=== PATIENT | female | born 1950 | race Caucasian/White ===

== ENCOUNTER 2016-07-06 06:51 | Outpatient (CLI) | payer MEDICAID | END 2016-07-06 06:52 | disposition home or self-care (01) | DX: R05 Cough (principal) ==

== ENCOUNTER 2016-07-18 14:50 | Outpatient (CLI) | payer MEDICAID | END 2016-07-18 14:51 | disposition home or self-care (01) | DX: Z13.9 Encounter for screening, unspecified (principal); B19.20 Unspecified viral hepatitis C without hepatic coma ==

== ENCOUNTER 2016-07-25 13:45 | Outpatient (CLI) | payer MEDICAID | END 2016-07-25 14:15 | disposition home or self-care (01) | DX: R07.9 Chest pain, unspecified (principal) ==

== ENCOUNTER 2016-07-31 12:14 | Outpatient (CLI) | payer MEDICAID | END 2016-07-31 12:15 | disposition home or self-care (01) | DX: N64.59 Other signs and symptoms in breast (principal) ==

== ENCOUNTER 2016-08-09 11:20 | Outpatient (CLI) | payer MEDICAID | END 2016-08-09 11:21 | disposition home or self-care (01) | DX: R00.2 Palpitations (principal) ==

== ENCOUNTER 2016-11-09 08:00 | Outpatient (CLI) | payer MEDICAID ==
[2016-11-09 19:15] LABS: BASOPHILS % (AUTO) 0.9 %; EOSINOPHILS # (AUTO) 0.1 10^3/uL (0.0-0.7); EOSINOPHILS % (AUTO) 3.6 %; HCT - HEMATOCRIT 40.5 % (37.0-47.0); HGB - HEMOGLOBIN 13.6 g/dL (12.0-16.0); LYMPHOCYTES # (AUTO) 1.2 10^3/uL (1.5-3.5); LYMPHOCYTES % (AUTO) 32.1 %; MEAN CORPUSCULAR HEMOGLOBIN 30.6 pg (27.0-31.0); MEAN CORPUSCULAR HGB CONC 33.5 g/dL (32.0-36.0); MEAN CORPUSCULAR VOLUME 91.3 fL (81.0-99.0); MONOCYTES # (AUTO) 0.5 10^3/uL (0.0-1.0); MONOCYTES % (AUTO) 13.7 %; NEUTROPHILS # (AUTO) 1.9 10^3/uL (1.5-6.6); NEUTROPHILS % (AUTO) 49.7 %; NUCLEATED RED BLOOD CELLS AUTO 0.1 /100WBC; RED BLOOD COUNT 4.43 10^6/uL (4.20-5.40); RED CELL DISTRIBUTION WIDTH 13.2 % (12.0-15.0); UNCORRECTED WHITE BLOOD COUNT 3.8 x10^3/uL; WHITE BLOOD COUNT 3.8 x10^3/uL (4.8-10.8)
[2016-11-09 19:36] LABS: ALBUMIN/GLOBULIN RATIO 1.6 (1.0-2.2); BILIRUBIN,TOTAL 0.5 mg/dL (0.2-1.0); CALCIUM 9.5 mg/dL (8.5-10.3); CREATININE 0.7 mg/dL (0.4-1.0); POTASSIUM 3.9 mmol/L (3.5-5.0); TOTAL PROTEIN 7.4 g/dL (6.7-8.2)
== END 2016-11-09 08:01 | disposition home or self-care (01) ==
LOC: LAB.N 08:00
PROVIDERS: ATTEND Nurse Practitioner Gerontology
DX: R25.2 Cramp and spasm (principal); D72.818 Other decreased white blood cell count
CPT/HCPCS: 36415; 80053; 83735; 85025; 87522

== ENCOUNTER 2017-05-20 14:08 | Emergency (ER) | payer MEDICAID ==
[2017-05-20 14:16] VITALS: BP 123/73
--- NOTE | 2017-05-20 16:29 | ED Physician Documentation ---
PD HPI HEENT - Stated complaint Stated Complaint: TOOTH PX - Chief complaint Chief Complaint: Heent - History obtained from History obtained from: Patient, Friend - History of Present Illness Timing - onset: How many weeks ago (2) Timing - duration: Weeks (2) Timing - details: Gradual onset Pain level max: 8 Pain level now: 8 Location: Tooth (Left upper tooth) Improves: Nothing Worsens: Other (eating) Associated symptoms: No: Fever, Congestion, Rhinorrhea, Trismus, Unable to swallow, Swollen nodes, Facial swelling, Headache Recently seen: Not recently seen - Additional information Additional information: Patient is being treated with epclusa for hep C. 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 : None HEENT: None Psych: None Musculoskeletal: Osteoarthritis Derm: None Other Past Medical History: Is undergoing pharmacologic treatment of Hep C - Past Surgical History Past Surgical History: No - Present Medications Home Medications: Ambulatory Orders Medication Instructions Recorded Confirmed Cephalexin [Keflex] 500 mg PO Q6H #40 capsule 05/20/17 oxyCODONE [Roxicodone] 5 mg PO Q6H PRN #10 tablet 05/20/17 - Allergies Allergies/Adverse Reactions: Allergies Allergy/AdvReac Type Severity Reaction Status Date / Time clindamycin AdvReac Nausea Verified 05/20/17 16:31 - Social History Does the pt smoke?: No Smoking Status: Never smoker Does the pt drink ETOH?: Yes Does the pt have substance abuse?: No - Immunizations Immunizations are current?: Yes - POLST Patient has POLST: No PD ED PE NORMAL - Vitals Vital signs reviewed: Yes - General General: Alert and oriented X 3, No acute distress - HEENT HEENT: Moist mucous membranes - Neck Neck: Supple, no meningeal sign - Cardiac Cardiac: RRR, Strong equal pulses - Respiratory Respiratory: No respiratory distress, Clear bilaterally PD ED PE EXPANDED - HEENT HEENT Visual: 1 - tenderness (dental decay, tenderness. no gingival swelling or abscess.) Results - Vitals Vitals: Vital Signs - 24 hr 05/20/17 14:13 Temperature 36.3 C L Heart Rate 72 Respiratory 18 Rate Blood Pressure 123/73 O2 Saturation 98 Oxygen O2 Source Room air PD MEDICAL DECISION MAKING - ED course Complexity details: considered differential, d/w patient ED course: Patient is a 67-year-old female who presents to the emergency department with dental caries, will place on antibiotics for this. Also prescribe a small amount of pain medication for her. Will avoid any Tylenol-containing medications given her hepatitis C. Patient is well-appearing, nontoxic. Afebrile. No facial swelling or cellulitis. No drainable abscess. Patient counseled regarding signs and symptoms for which I believe and urgent re- evaluation would be necessary. Patient with good understanding of and agreement to plan and is comfortable going home at this time This document was made in part using voice recognition software. While efforts are made to proofread this document, sound alike and grammatical errors may occur. Departure - Departure Disposition: 01 Home, Self Care Clinical Impression: Dental caries Condition: Good Instructions: ED Cavity Dental Follow-Up: Leah Fernandez ARNP [Primary Care Provider] - Within 1 week Prescriptions: Cephalexin [Keflex] 500 mg PO Q6H #40 capsule oxyCODONE [Roxicodone] 5 mg PO Q6H PRN #10 tablet PRN Reason: dental pain Comments: Return if you worsen. It is very important that you follow-up with your doctor for further care as well as a dentist to evaluate your tooth. Do not drink alcohol or drive while on narcotic pain medicine. Note that many narcotic pain relievers also contain tylenol/acetaminophen. Please ensure that your total dose of acetaminophen from all sources does not exceed 3 grams (3000mg) per day. You may constipated on this medication, take a stool softener such as "Colace" twice a day while you are on it. Also recommend a ytos-kou-ckmdsli laxative such as senna or MiraLAX any day that you do not have a bowel movement. If you received narcotic pain medication in the emergency department, do not drive or operate machinery for the next 24 hours. Discharge Date/Time: 05/20/17 16:40
== END 2017-05-20 16:40 | disposition home or self-care (01) ==
LOC: ED 14:08
DX: K02.9 Dental caries, unspecified (principal); B19.20 Unspecified viral hepatitis C without hepatic coma; M19.90 Unspecified osteoarthritis, unspecified site
CPT/HCPCS: 99283

== ENCOUNTER 2017-09-21 08:00 | Outpatient (CLI) | payer MEDICAID, MEDICARE ==
[2017-09-21 19:19] LABS: CALCIUM 9.4 mg/dL (8.5-10.3); CREATININE 0.7 mg/dL (0.4-1.0)
== END 2017-09-21 08:01 | disposition home or self-care (01) ==
LOC: LAB.N 08:00
PROVIDERS: ATTEND Nurse Practitioner Gerontology
DX: E87.1 Hypo-osmolality and hyponatremia (principal)
CPT/HCPCS: 36415; 80048

== ENCOUNTER 2018-05-09 13:10 | Outpatient (CLI) | payer MEDICARE, OTHER ==
--- NOTE | 2018-05-17 09:55 | MRI Report ---
Reason: ABN BREAST FINDINS, BREAST IMPLANT STATUS Procedure Date: 05/09/2018 Accession Number: [id number] / [id number] Procedure: MRI - Breast W/O Con Bilat CPT Code: 82147 FULL RESULT: EXAM: Breast W/O Con Bilat DATE: 05/09/2018 2:16 PM CLINICAL HISTORY: Clinical findings suspicious for breast implant rupture. COMPARISON: None. TECHNIQUE: A dedicated breast coil was used to obtain alberene stone setter sequences followed by high-resolution axial and limited [id number] sagittal views with dedicated acquisition focused on the left and separately right breast. CONTRAST USED: None. FINDINGS: Chest: Limited nondedicated visualization of heart, lungs and visceral upper abdominal organs is unremarkable. Right breast: There is a contained rupture of the right saline breast implant with the implant shell retracted and suspended within the fluid; positive linguini sign. Left breast: Within the well-contained fluid volume along the posterior medial margin of the left saline implant is a retracted portion of the shell as seen on image 29 series 401 and image 13 series 301. This likely represents early disruption of implant shell integrity. IMPRESSION: Right breast implant rupture. Question early contained rupture of the posterior left breast implant. Integrity of the saline volume is maintained on the left.
== END 2018-05-09 13:11 | disposition home or self-care (01) ==
LOC: DI 13:10
PROVIDERS: ATTEND Nurse Practitioner Gerontology
DX: T85.41XA Breakdown (mechanical) of breast prosthesis and implant, initial encounter (principal); N64.4 Mastodynia; Z98.82 Breast implant status
CPT/HCPCS: 77047

== ENCOUNTER 2019-01-07 08:00 | Outpatient (CLI) | payer MEDICARE, OTHER ==
[2019-01-07 19:14] LABS: BASOPHILS % (AUTO) 0.7 %; EOSINOPHILS # (AUTO) 0.1 10^3/uL (0.0-0.7); EOSINOPHILS % (AUTO) 1.7 %; HGB - HEMOGLOBIN 12.5 g/dL (12.0-16.0); LYMPHOCYTES # (AUTO) 1.2 10^3/uL (1.5-3.5); LYMPHOCYTES % (AUTO) 28.2 %; MEAN CORPUSCULAR HEMOGLOBIN 30.5 pg (27.0-31.0); MEAN CORPUSCULAR HGB CONC 32.8 g/dL (32.0-36.0); MEAN CORPUSCULAR VOLUME 92.9 fL (81.0-99.0); MEAN PLATELET VOLUME 9.7 fL (7.9-10.8); MONOCYTES # (AUTO) 0.5 10^3/uL (0.0-1.0); MONOCYTES % (AUTO) 12.1 %; NEUTROPHILS # (AUTO) 2.4 10^3/uL (1.5-6.6); NEUTROPHILS % (AUTO) 57.1 %; PLT - PLATELET COUNT 205 10^3/uL (130-450); RED CELL DISTRIBUTION WIDTH 12.9 % (12.0-15.0); WHITE BLOOD COUNT 4.2 x10^3/uL (4.8-10.8)
[2019-01-07 19:26] LABS: ALBUMIN 4.5 g/dL (3.2-5.5); ALBUMIN/GLOBULIN RATIO 1.4 (1.0-2.2); ALKALINE PHOSPHATASE 53 IU/L (42-121); ALT ALANINE AMINOTRANSFERASE 17 IU/L (10-60); AST ASPARTATE AMINOTRANSFERASE 21 IU/L (10-42); BILIRUBIN,TOTAL 0.7 mg/dL (0.2-1.0); BUN - BLOOD UREA NITROGEN 13 mg/dL (6-20); CALCIUM 9.8 mg/dL (8.5-10.3); CARBON DIOXIDE - CO2 29 mmol/L (21-32); CHLORIDE 103 mmol/L (101-111); CHOL/HDL RATIO 2.8 (<4.4); CHOLESTEROL 281 mg/dL; CREATININE 0.6 mg/dL (0.4-1.0); GFR - MDRD 100 (>89); GLUCOSE 100 mg/dL (70-100); HDL CHOLESTEROL 99 mg/dL; LDL CHOLESTEROL,CALCULATED 165 mg/dL; LDL/HDL RATIO 1.7 (<4.4); SODIUM 138 mmol/L (135-145); TOTAL PROTEIN 7.7 g/dL (6.7-8.2); VLDL CHOLESTEROL 17 mg/dL
[2019-01-17 07:51] LABS: HCV RNA QUANT RT PCR <15 NOT DETECTED
[2019-01-17 07:53] LABS: HCV RNA QNT <1.18 NOT DETECTED
== END 2019-01-07 23:59 | disposition home or self-care (01) ==
LOC: LAB.N 08:00
PROVIDERS: ATTEND Nurse Practitioner Gerontology
DX: Z13.9 Encounter for screening, unspecified (principal); B19.20 Unspecified viral hepatitis C without hepatic coma; R53.83 Other fatigue
CPT/HCPCS: 36415; 80053; 80061; 83721; 84443; 85025; 87522

== ENCOUNTER 2019-01-15 15:38 | Outpatient (CLI) | payer MEDICARE, OTHER ==
--- NOTE | 2019-01-18 08:08 | Ultrasound Report ---
Reason: FATIGUE, ENLARGED THYROID Procedure Date: 01/15/2019 Accession Number: [id number] / [id number] Procedure: US - Head or Neck Soft Tissue CPT Code: FULL RESULT: EXAM: THYROID ULTRASOUND EXAM DATE: 01/15/2019 04:47 PM. CLINICAL HISTORY: Fatigue, enlarged thyroid. COMPARISON: None. TECHNIQUE: Real time sonographic imaging of the thyroid was performed by the assistant teacher primary. Multiple customer engagement representative static images were saved for review. FINDINGS: THYROID GLAND: Right Lobe: 3.9 x 1.1 x 1.3 cm, volume 2.9 cc. Mildly heterogeneous parenchyma. Right Lobe Nodules: 0.3 x 0.2 x 0.2 cm mid right thyroid non-vascular solid nodule. No microcalcifications. Left Lobe: 3.9 x 0.8 x 1.1 cm, volume 1.8 cc. Mildly heterogeneous parenchyma. Left Lobe Nodules: 0.5 x 0.3 x 0.3 cm echogenic medial mid left thyroid solid nodule with punctate echogenic nonshadowing foci. Minimal peripheral vascularity. Isthmus: 0.2 cm AP. Isthmic Nodules: None. LYMPH NODES: No adenopathy demonstrated in the central or lateral compartment. OTHER: None. IMPRESSION: 1. Heterogeneous thyroid parenchyma. 2. 0.5 cm solid minimally vascular mid left thyroid nodule with calcifications. 0.3 cm solid avascular mid right thyroid nodule. No microcalcifications. Recommend follow-up ultrasound in 12-24 months to document stability. 3. No pathologic lymphadenopathy. Management recommendations are based on 2015 [place] [employer] Management Guidelines for Adult Patients with Thyroid Nodules and Differentiated Thyroid Cancer. RADIA
== END 2019-01-15 15:39 | disposition home or self-care (01) ==
LOC: DI 15:38
PROVIDERS: ATTEND Nurse Practitioner Gerontology
DX: E04.2 Nontoxic multinodular goiter (principal); R53.83 Other fatigue
CPT/HCPCS: 76536

== ENCOUNTER 2019-02-23 16:24 | Emergency (ER) | payer MEDICARE, OTHER ==
[2019-02-23] MEDS ORDERED: oxyCODONE 5 MG TABLET PO STA (16:46)
--- NOTE | 2019-02-23 16:48 | ED Physician Documentation ---
PD HPI FOCAL NEURO - Stated complaint Stated Complaint: DIFFICULTY SWALLOWING, PX BACK OF HEAD - Chief complaint Chief Complaint: Neuro - History obtained from History obtained from: Patient - History of Present Illness Timing - onset: Yesterday (68-year-old woman who was starting yesterday morning right anterior mid neck pain when swallowing which triggered a occipital headache. Yesterday it was mostly with swallowing but today the swallowing is better and now has the headache which is right occipital and at the vertex. Its spasmodic almost, last for seconds at a time and then goes away. There is no associated visual deficit. No fevers. 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 : None HEENT: None Psych: None Musculoskeletal: Osteoarthritis Derm: None - Past Surgical History Past Surgical History: No - Present Medications Home Medications: Ambulatory Orders Medication Instructions Recorded Confirmed Carbamazepine 200 mg PO BID #30 tablet 02/23/19 - Allergies Allergies/Adverse Reactions: Allergies Allergy/AdvReac Type Severity Reaction Status Date / Time meperidine [From Demerol] Allergy Unknown Verified 02/23/19 16:33 clindamycin AdvReac Nausea Verified 02/23/19 16:33 - Social History Does the pt smoke?: No Smoking Status: Never smoker Does the pt drink ETOH?: Yes Does the pt have substance abuse?: No - Immunizations Immunizations are current?: Yes - POLST Patient has POLST: No PD ED PE NORMAL - Vitals Vital signs reviewed: Yes - General General: Alert and oriented X 3, Other (Generally no distress but occasionally kind of spasms up and looks like she is in pain for a second or 2) - HEENT HEENT: PERRL, EOMI, Other (No temporal artery tenderness. Cranial nerves are equal and symmetric except I did not check cranial nerve I.) - Neck Neck: Supple, no meningeal sign, No bony TTP - Cardiac Cardiac: RRR, No murmur - Abdomen Abdomen: Soft, Non tender - Neuro Neuro: Alert and oriented X 3, theater company producer 2-12 intact, No motor deficit, No sensory deficit, Normal speech - Psych Psych: Normal mood, Normal affect Results - Vitals Vitals: Vital Signs - 24 hr 02/23/19 16:29 Temperature 36.8 C Heart Rate 87 Respiratory 20 Rate Blood Pressure 143/69 H O2 Saturation 100 Oxygen O2 Source Room air - Labs Labs: Laboratory Tests 02/23/19 02/23/19 02/23/19 16:56 16:56 16:56 WBC 5.0 RBC 4.20 Hgb 12.8 Hct 38.6 MCV 91.9 MCH 30.5 MCHC 33.2 RDW 12.8 Plt Count 205 MPV 8.9 Neut # (Auto) 2.9 Lymph # (Auto) 1.5 [place] # (Auto) 0.5 Eos # (Auto) 0.1 Baso # (Auto) 0.0 Absolute Nucleated RBC 0.00 Nucleated RBC % 0.0 ESR 5 Sodium 137 Potassium 4.0 Chloride 99 L Carbon Dioxide 25 Anion Gap 13.0 BUN 17 Creatinine 0.7 Estimated GFR (MDRD) 84 L Glucose 121 H Calcium 9.8 Total Bilirubin 0.7 AST 22 ALT 16 Alkaline Phosphatase 51 C-Reactive Protein < 1.0 Total Protein 7.5 Albumin 4.2 Globulin 3.3 Albumin/Globulin Ratio 1.3 Lipase 39 - Rads (name of study) CT Head Radiology: EMP read contemporaneously (normal) Procedures - General procedure General procedure: After discussion and verbal informed consent a right sided greater occipital nerve block was done after alcohol prep with 3 mL of 0.5% Marcaine with epinephrine and 1 mL of 40 mg of triamcinolone. PD MEDICAL DECISION MAKING - ED course ED course: 68-year-old woman presents with a history very consistent with occipital neuralgia, differential diagnosis would include vascular issue, intracranial bleed etc., but the spasmodic nature of it strongly suggest occipital neuralgia. She actually did have some relief with the occipital nerve block but the pain seemed to move more anteriorly at that point suggesting multiple areas of the cranial neuralgia. Her diagnostics were negative. She had some side effects with oxycodone here causing some nausea and flushing which resolved with queasy ease, she did not want any more med patients but she was sent home with a carbamazepine and a Benadryl to help her sleep, but she wants to consider whether or not she wants to try them later. She seems fearful of medications in general. Departure - Departure Disposition: 01 Home, Self Care Clinical Impression: Occipital neuralgia of right side Condition: Good Record reviewed to determine appropriate education?: Yes Follow-Up: Johanna Murillo MD [Physician No Access] - Prescriptions: Carbamazepine 200 mg PO BID #30 tablet Comments: If symptoms are persistent, follow-up with a neurologist for further evaluation and treatment. Return for new or worsening symptoms. Refer to the up-to-date online article about Occipital neuralgia for further information that I gave you.
[2019-02-23 17:00] LABS: BASOPHILS % (AUTO) 0.6 %; EOSINOPHILS # (AUTO) 0.1 10^3/uL (0.0-0.7); EOSINOPHILS % (AUTO) 1.2 %; HGB - HEMOGLOBIN 12.8 g/dL (12.0-16.0); LYMPHOCYTES # (AUTO) 1.5 10^3/uL (1.5-3.5); LYMPHOCYTES % (AUTO) 29.5 %; MEAN CORPUSCULAR HEMOGLOBIN 30.5 pg (27.0-31.0); MEAN CORPUSCULAR HGB CONC 33.2 g/dL (32.0-36.0); MEAN CORPUSCULAR VOLUME 91.9 fL (81.0-99.0); MEAN PLATELET VOLUME 8.9 fL (7.9-10.8); MONOCYTES # (AUTO) 0.5 10^3/uL (0.0-1.0); MONOCYTES % (AUTO) 10.7 %; NEUTROPHILS # (AUTO) 2.9 10^3/uL (1.5-6.6); NEUTROPHILS % (AUTO) 57.8 %; PLT - PLATELET COUNT 205 10^3/uL (130-450); RED CELL DISTRIBUTION WIDTH 12.8 % (12.0-15.0)
[2019-02-23] MEDS ORDERED: TRIAMCINOLONE 40 MG/ML VIAL IM STA (17:11)
[2019-02-23] MEDS ORDERED: BUPIVACAINE 0.5%-EPI 1:200000 PF 10 ML VIAL SUBQ STA (17:11)
[2019-02-23 17:26] LABS: ALBUMIN 4.2 g/dL (3.2-5.5); ALBUMIN/GLOBULIN RATIO 1.3 (1.0-2.2); ALKALINE PHOSPHATASE 51 IU/L (42-121); ALT ALANINE AMINOTRANSFERASE 16 IU/L (10-60); AST ASPARTATE AMINOTRANSFERASE 22 IU/L (10-42); BILIRUBIN,TOTAL 0.7 mg/dL (0.2-1.0); BUN - BLOOD UREA NITROGEN 17 mg/dL (6-20); CALCIUM 9.8 mg/dL (8.5-10.3); CARBON DIOXIDE - CO2 25 mmol/L (21-32); CHLORIDE 99 mmol/L (101-111); CREATININE 0.7 mg/dL (0.4-1.0); GFR - MDRD 84 (>89); GLUCOSE 121 mg/dL (70-100); LIPASE 39 U/L (22-51); SODIUM 137 mmol/L (135-145); TOTAL PROTEIN 7.5 g/dL (6.7-8.2)
[2019-02-23 17:30] LABS: CRP - C-REACTIVE PROTEIN < 1.0 mg/dL (0-1.0)
--- NOTE | 2019-02-23 17:49 | CT Report ---
Reason: headache Procedure Date: 02/23/2019 Accession Number: [id number] / [id number] Procedure: CT - HEAD WO CPT Code: Final Report FULL RESULT: EXAM: CT HEAD EXAM DATE: 02/23/2019 05:05 PM. CLINICAL HISTORY: Headache. COMPARISON: None. TECHNIQUE: Multiaxial CT images were obtained from the foramen magnum to the vertex. Reformats: Sagittal and coronal. IV contrast: None. In accordance with CT protocol optimization, one or more of the following dose reduction techniques were utilized for this exam: automated exposure control, adjustment of mA and/or KV based on patient size, or use of iterative reconstructive technique. FINDINGS: Parenchyma: No intraparenchymal hemorrhage. No evidence of mass, midline shift, or CT findings of infarction. Phan-white differentiation is distinct. Extraaxial Spaces: Normal for age. No subdural or epidural collections identified. Ventricles: Normal in size and position. Sinuses and Orbits: Imaged paranasal sinuses, orbits, and mastoids show no significant abnormality. Bones: No evidence of fracture or calvarial defect. Other: None. IMPRESSION: No acute intracranial abnormality. RADIA
[2019-02-23] MEDS ORDERED: diphenhydrAMINE 25 MG CAPSULE PO STA (18:08)
[2019-02-23] MEDS ORDERED: carBAMazepine 200 MG TABLET PO STA (18:08)
[2019-02-23 18:18] VITALS: BP 142/68
== END 2019-02-23 18:18 | disposition home or self-care (01) ==
LOC: ED 16:24
DX: M54.81 Occipital neuralgia (principal)
CPT/HCPCS: 36415; 64405; 70450; 80053; 83690; 85025; 85651; 86140; 99284; A9270

== ENCOUNTER 2019-07-04 11:59 | Outpatient (CLI) | payer MEDICARE, OTHER ==
[2019-07-04 18:24] LABS: BASOPHILS % (AUTO) 0.9 %; EOSINOPHILS # (AUTO) 0.2 10^3/uL (0.0-0.7); EOSINOPHILS % (AUTO) 4.7 %; HGB - HEMOGLOBIN 12.4 g/dL (12.0-16.0); LYMPHOCYTES # (AUTO) 1.1 10^3/uL (1.5-3.5); LYMPHOCYTES % (AUTO) 31.8 %; MEAN CORPUSCULAR HEMOGLOBIN 30.6 pg (27.0-31.0); MEAN CORPUSCULAR HGB CONC 33.1 g/dL (32.0-36.0); MEAN CORPUSCULAR VOLUME 92.6 fL (81.0-99.0); MEAN PLATELET VOLUME 9.6 fL (7.9-10.8); MONOCYTES # (AUTO) 0.4 10^3/uL (0.0-1.0); NEUTROPHILS # (AUTO) 1.7 10^3/uL (1.5-6.6); NEUTROPHILS % (AUTO) 51.3 %; PLT - PLATELET COUNT 232 10^3/uL (130-450); RED BLOOD COUNT 4.05 10^6/uL (4.20-5.40); RED CELL DISTRIBUTION WIDTH 12.2 % (12.0-15.0); WHITE BLOOD COUNT 3.4 x10^3/uL (4.8-10.8)
[2019-07-04 18:57] LABS: ALBUMIN 4.3 g/dL (3.2-5.5); ALBUMIN/GLOBULIN RATIO 1.4 (1.0-2.2); BILIRUBIN,TOTAL 0.6 mg/dL (0.2-1.0); CALCIUM 9.2 mg/dL (8.5-10.3); CREATININE 0.6 mg/dL (0.4-1.0); MAGNESIUM 1.9 mg/dL (1.7-2.8); TOTAL PROTEIN 7.3 g/dL (6.7-8.2)
== END 2019-07-04 23:59 | disposition home or self-care (01) ==
LOC: LAB.N 11:59
PROVIDERS: ATTEND Nurse Practitioner Gerontology
DX: E87.8 Other disorders of electrolyte and fluid balance, not elsewhere classified (principal); D64.9 Anemia, unspecified
CPT/HCPCS: 36415; 80053; 83735; 85025

== ENCOUNTER 2019-08-15 08:00 | Outpatient (CLI) | payer MEDICARE, OTHER ==
[2019-08-15 18:00] LABS: CALCIUM 9.5 mg/dL (8.5-10.3); CREATININE 0.7 mg/dL (0.4-1.0)
[2019-08-15 18:34] LABS: HB2 TOTAL 12.6 g/dL; HEMOGLOBIN A1C 0.49 g/dL; HEMOGLOBIN A1C % 5.7 % (4.6-6.2)
== END 2019-08-15 23:59 | disposition home or self-care (01) ==
LOC: LAB.WCP 08:00
PROVIDERS: ATTEND Family Medicine
DX: E87.1 Hypo-osmolality and hyponatremia (principal); R73.9 Hyperglycemia, unspecified
CPT/HCPCS: 36415; 80048; 83036

== ENCOUNTER 2019-10-21 08:00 | Outpatient (CLI) | payer MEDICARE, OTHER ==
[2019-10-21 18:19] LABS: BASOPHILS % (AUTO) 0.8 %; EOSINOPHILS # (AUTO) 0.1 10^3/uL (0.0-0.7); EOSINOPHILS % (AUTO) 3.1 %; HGB - HEMOGLOBIN 12.3 g/dL (12.0-16.0); LYMPHOCYTES # (AUTO) 1.1 10^3/uL (1.5-3.5); LYMPHOCYTES % (AUTO) 29.5 %; MEAN CORPUSCULAR HGB CONC 31.9 g/dL (32.0-36.0); MEAN CORPUSCULAR VOLUME 94.1 fL (81.0-99.0); MEAN PLATELET VOLUME 9.9 fL (7.9-10.8); MONOCYTES # (AUTO) 0.6 10^3/uL (0.0-1.0); NEUTROPHILS % (AUTO) 51.3 %; PLT - PLATELET COUNT 203 10^3/uL (130-450); RED CELL DISTRIBUTION WIDTH 13.4 % (12.0-15.0); WHITE BLOOD COUNT 3.9 x10^3/uL (4.8-10.8)
[2019-10-21 18:32] LABS: ALBUMIN 4.5 g/dL (3.2-5.5); ALBUMIN/GLOBULIN RATIO 1.7 (1.0-2.2); BILIRUBIN,TOTAL 0.6 mg/dL (0.2-1.0); CALCIUM 9.4 mg/dL (8.5-10.3); CREATININE 0.6 mg/dL (0.4-1.0); TOTAL PROTEIN 7.2 g/dL (6.7-8.2)
== END 2019-10-21 08:01 | disposition home or self-care (01) ==
LOC: LAB.WCP 08:00
PROVIDERS: ATTEND Family Medicine
DX: D64.9 Anemia, unspecified (principal); E87.1 Hypo-osmolality and hyponatremia
CPT/HCPCS: 36415; 80053; 85025

== ENCOUNTER 2019-10-22 09:59 | Outpatient (CLI) | payer MEDICARE, OTHER ==
[2019-10-22 11:59] LABS: HGB - HEMOGLOBIN 12.2 g/dL (12.0-16.0); MEAN CORPUSCULAR HEMOGLOBIN 29.9 pg (27.0-31.0); MEAN CORPUSCULAR HGB CONC 32.3 g/dL (32.0-36.0); MEAN CORPUSCULAR VOLUME 92.6 fL (81.0-99.0); MEAN PLATELET VOLUME 9.8 fL (7.9-10.8); RED BLOOD COUNT 4.08 10^6/uL (4.20-5.40); RED CELL DISTRIBUTION WIDTH 13.2 % (12.0-15.0); WHITE BLOOD COUNT 4.1 x10^3/uL (4.8-10.8)
[2019-10-22 12:57] LABS: CRP - C-REACTIVE PROTEIN < 1.0 mg/dL (0-1.0)
[2019-10-22 13:00] LABS: URIC ACID 4.9 mg/dL (2.6-7.2)
[2019-10-22 16:10] LABS: RHEUMATOID FACTOR NEGATIVE (Negative)
[2019-10-27 15:09] LABS: ANA SCREEN NEGATIVE (NEGATIVE)
== END 2019-10-22 23:59 | disposition home or self-care (01) ==
LOC: LAB.WCP 09:59
PROVIDERS: ATTEND Family Medicine
DX: M19.90 Unspecified osteoarthritis, unspecified site (principal); M79.606 Pain in leg, unspecified
CPT/HCPCS: 36415; 84550; 85027; 85651; 86038; 86140; 86200; 86430

== ENCOUNTER 2019-11-10 13:44 | Outpatient (CLI) | payer MEDICARE, OTHER ==
--- NOTE | 2019-11-10 15:33 | Ultrasound Report ---
PROCEDURE: Duplex Ext Veins Bilateral INDICATIONS: MIKI LECHUGA TECHNIQUE: Real-time imaging, as well as color and pulse Doppler interrogation, were performed of the deep veins of both legs from the inguinal ligament to the popliteal fossa. COMPARISON: FINDINGS: The deep veins are normally compressible, and free of intraluminal thrombus. Color and pu lse Doppler demonstrate normal phasic intravascular flow. There is normal augmentation response to d istal compression maneuver. IMPRESSION: No evidence for deep venous thrombosis in lower extremities. Reviewed by: Harris Arambula MD on 11/10/2019 3:32 PM PDT Approved by: Harris Arambula MD on 11/10/2019 3:32 PM PDT Station ID: [id number]
== END 2019-11-10 13:45 | disposition home or self-care (01) ==
LOC: DI 13:44
PROVIDERS: ATTEND Family Medicine
DX: M79.605 Pain in left leg (principal); M79.604 Pain in right leg
CPT/HCPCS: 93970

== ENCOUNTER 2020-07-14 14:26 | Outpatient (CLI) | payer MEDICARE, OTHER ==
[2020-07-14 18:01] LABS: BASOPHILS % (AUTO) 0.7 %; EOSINOPHILS # (AUTO) 0.1 10^3/uL (0.0-0.7); EOSINOPHILS % (AUTO) 2.1 %; HCT - HEMATOCRIT 38.6 % (37.0-47.0); HGB - HEMOGLOBIN 12.6 g/dL (12.0-16.0); LYMPHOCYTES # (AUTO) 1.4 10^3/uL (1.5-3.5); LYMPHOCYTES % (AUTO) 32.6 %; MEAN CORPUSCULAR HEMOGLOBIN 30.5 pg (27.0-31.0); MEAN CORPUSCULAR HGB CONC 32.6 g/dL (32.0-36.0); MEAN CORPUSCULAR VOLUME 93.5 fL (81.0-99.0); MONOCYTES # (AUTO) 0.5 10^3/uL (0.0-1.0); MONOCYTES % (AUTO) 11.8 %; NEUTROPHILS # (AUTO) 2.3 10^3/uL (1.5-6.6); NEUTROPHILS % (AUTO) 52.3 %; PLT - PLATELET COUNT 231 10^3/uL (130-450); RED BLOOD COUNT 4.13 10^6/uL (4.20-5.40); RED CELL DISTRIBUTION WIDTH 12.9 % (12.0-15.0); WHITE BLOOD COUNT 4.4 x10^3/uL (4.8-10.8)
[2020-07-14 18:32] LABS: ALBUMIN 4.8 g/dL (3.2-5.5); ALBUMIN/GLOBULIN RATIO 1.7 (1.0-2.2); ALKALINE PHOSPHATASE 45 IU/L (42-121); ALT ALANINE AMINOTRANSFERASE 20 IU/L (10-60); AST ASPARTATE AMINOTRANSFERASE 26 IU/L (10-42); BILIRUBIN,TOTAL 0.8 mg/dL (0.2-1.0); BUN - BLOOD UREA NITROGEN 22 mg/dL (6-20); CALCIUM 9.8 mg/dL (8.5-10.3); CARBON DIOXIDE - CO2 27 mmol/L (21-32); CHLORIDE 102 mmol/L (101-111); CHOL/HDL RATIO 3.6 (<4.4); CHOLESTEROL 315 mg/dL; CREATININE 0.7 mg/dL (0.4-1.0); GFR - MDRD 83 (>89); GLUCOSE 115 mg/dL (70-100); HDL CHOLESTEROL 88 mg/dL; LDL CHOLESTEROL,CALCULATED 211 mg/dL; LDL/HDL RATIO 2.4 (<4.4); POTASSIUM 4.2 mmol/L (3.5-5.0); SODIUM 137 mmol/L (135-145); TOTAL PROTEIN 7.7 g/dL (6.7-8.2); TRIGLYCERIDES 78 mg/dL; VLDL CHOLESTEROL 16 mg/dL
== END 2020-07-14 14:27 | disposition home or self-care (01) ==
LOC: LAB.N 14:26
PROVIDERS: ATTEND Physician Assistant
DX: E78.5 Hyperlipidemia, unspecified (principal)
CPT/HCPCS: 36415; 80053; 80061; 83721; 85025

== ENCOUNTER 2020-08-18 08:00 | Outpatient (CLI) | payer MEDICARE, OTHER | END 2020-08-18 23:59 | disposition home or self-care (01) | LOC: LAB.N 08:00 | PROVIDERS: ATTEND Nurse Practitioner | DX: R07.0 Pain in throat (principal); Z20.822 Contact with and (suspected) exposure to COVID-19 ==

== ENCOUNTER 2021-11-03 16:51 | Emergency (ER) | payer MEDICARE, OTHER ==
--- NOTE | 2021-11-03 17:24 | ED Physician Documentation ---
PD HPI CHEST PAIN - Stated complaint Stated Complaint: CHEST PAIN - Chief complaint Chief Complaint: Cardiac - History obtained from History obtained from: Patient - Additional information Additional information: 71-year-old woman with chronic palpitations but without known coronary disease presents for the evaluation of chest pain. It was a burning pain that started last night while eating and has been constant ever since. It is worse if she bends forward or takes a deep breath. She is short of breath and anxious with it. She denies radiation to the back. It does not get worse with exertion albeit she did not exert much today. She denies pedal edema or calf pain but has years worth of bilateral bone pain in her legs. Review of Systems Ten Systems: 10 systems reviewed and negative Constitutional: denies: Fever, Chills, Fatigue Cardiac: reports: Chest pain / pressure, Palpitations Respiratory: reports: Dyspnea. 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 HEENT: None Psych: None Musculoskeletal: Osteoarthritis Derm: None - Past Surgical History Past Surgical History: No - Present Medications Home Medications: Ambulatory Orders Medication Instructions Recorded Confirmed Carbamazepine 200 mg PO BID #30 tablet 02/23/19 Famotidine [Pepcid] 20 mg PO BID #60 tablet 11/03/21 Metoprolol Succinate [Toprol Xl] 25 mg PO DAILY #30 tablet 11/03/21 - Allergies Allergies/Adverse Reactions: Allergies Allergy/AdvReac Type Severity Reaction Status Date / Time meperidine [From Demerol] Allergy Unknown Verified 11/03/21 17:07 clindamycin AdvReac Nausea Verified 11/03/21 17:07 - Social History Does the pt smoke?: No Smoking Status: Never smoker Does the pt drink ETOH?: Yes Does the pt have substance abuse?: No - Immunizations Immunizations are current?: Yes - POLST Patient has POLST: No PD ED PE NORMAL - Vitals Vital signs reviewed: Yes - General General: Alert and oriented X 3, Other (She is anxious) - HEENT HEENT: PERRL, EOMI - Neck Neck: Supple, no meningeal sign, No bony TTP - Cardiac Cardiac: RRR, No murmur - Respiratory Respiratory: No respiratory distress, Clear bilaterally - Abdomen Abdomen: Normal bowel sounds, Soft, Non tender - Back Back: No CVA TTP, No spinal TTP - Derm Derm: Normal color, Warm and dry - Extremities Extremities: No edema, No calf tenderness / cord - Neuro Neuro: Alert and oriented X 3, Normal speech Results - Vitals Vitals: Vital Signs - 24 hr 11/03/21 17:03 Temperature 36.6 C Heart Rate 104 H Respiratory 16 Rate Blood Pressure 151/83 H O2 Saturation 100 Oxygen O2 Source Room air - EKG (time done) 1659 Rate: Rate (enter#) (101) Rhythm: Sinus tachycardia [place]: Normal Intervals: Normal [place] QRS: Normal Ischemia: Normal ST segments - Labs Labs: Laboratory Tests 11/03/21 11/03/21 11/03/21 17:34 17:34 17:35 WBC 5.4 RBC 4.11 L Hgb 12.5 Hct 37.1 MCV 90.3 MCH 30.4 MCHC 33.7 RDW 12.4 Plt Count 222 MPV 9.0 Neut # (Auto) 3.8 Lymph # (Auto) 0.9 L [place] # (Auto) 0.6 Eos # (Auto) 0.1 Baso # (Auto) 0.0 Absolute Nucleated RBC 0.00 Nucleated RBC % 0.0 Sodium 134 L Potassium 3.7 Chloride 97 L Carbon Dioxide 26 Anion Gap 11.0 BUN 9 Creatinine 0.5 Estimated GFR (MDRD) 122 Glucose 134 H Calcium 10.0 Total Bilirubin 0.9 AST 26 ALT 19 Alkaline Phosphatase 53 Troponin I High Sens 2.9 Total Protein 7.6 Albumin 4.6 Globulin 3.0 Albumin/Globulin Ratio 1.5 Lipase 37 PD MEDICAL DECISION MAKING - ED course ED course: 71-year-old woman with ongoing pain that frankly sounds more GI than anything else that is been going on for about 20 hours on arrival unabated. EKG is nonischemic. She is having palpitations to but these are more longstanding. She has occasional PACs on the monitor which exactly correspond to her symptoms that she feels. Work-up here demonstrates normal EKG, unremarkable chest x-ray save elevated left hemidiaphragm, negative troponin and unremarkable electrolytes. She was given a GI cocktail which was helpful albeit not quite curative. Departure - Departure Disposition: 01 Home, Self Care Clinical Impression: PAC (premature atrial contraction), Chest pain Condition: Good Record reviewed to determine appropriate education?: Yes Instructions: ED Chest Pain NonCardiac Prescriptions: Famotidine [Pepcid] 20 mg PO BID #60 tablet Metoprolol Succinate [Toprol Xl] 25 mg PO DAILY #30 tablet Comments: As discussed, on the monitor you are having occasional premature atrial contractions causing your palpitations. This is generally not considered to be dangerous. I am prescribing some metoprolol which you are going to research and consider taking depending on how disabling you feel like the palpitations are. You can go up on the dose of metoprolol, I am starting on the lowest dose. There is no evidence of active coronary disease but she should still follow-up with her primary care physician, next available appointment. Given that your troponin was negative and your EKG normal and given that she did have good response to the GI cocktail this would suggest that a g GI source of your pain is likely such as reflux. Call your doctor tomorrow for next available appointment.
[2021-11-03] MEDS ORDERED: LIDOCAINE VISCOUS 2% 15 ML UDC MM STA (17:43)
[2021-11-03] MEDS ORDERED: MAG HYDROX/AL HYDROX/SIMETH 30 ML UDC PO STA (17:43)
[2021-11-03 17:47] LABS: BASOPHILS % (AUTO) 0.4 %; EOSINOPHILS # (AUTO) 0.1 10^3/uL (0.0-0.7); EOSINOPHILS % (AUTO) 0.9 %; HCT - HEMATOCRIT 37.1 % (37.0-47.0); HGB - HEMOGLOBIN 12.5 g/dL (12.0-16.0); LYMPHOCYTES # (AUTO) 0.9 10^3/uL (1.5-3.5); LYMPHOCYTES % (AUTO) 16.4 %; MEAN CORPUSCULAR HEMOGLOBIN 30.4 pg (27.0-31.0); MEAN CORPUSCULAR HGB CONC 33.7 g/dL (32.0-36.0); MEAN CORPUSCULAR VOLUME 90.3 fL (81.0-99.0); MONOCYTES # (AUTO) 0.6 10^3/uL (0.0-1.0); MONOCYTES % (AUTO) 11.6 %; NEUTROPHILS # (AUTO) 3.8 10^3/uL (1.5-6.6); NEUTROPHILS % (AUTO) 70.3 %; PLT - PLATELET COUNT 222 10^3/uL (130-450); RED BLOOD COUNT 4.11 10^6/uL (4.20-5.40); RED CELL DISTRIBUTION WIDTH 12.4 % (12.0-15.0); WHITE BLOOD COUNT 5.4 x10^3/uL (4.8-10.8)
--- NOTE | 2021-11-03 17:55 | XRAY Report ---
PROCEDURE: Chest 1 View X-Ray INDICATIONS: Chest Pain COMMENTS: Chest pain/ Pt states centered chest pain following eating las t night PRIORS: none TECHNIQUE: One view of the chest was acquired. COMPARISON: None FINDINGS: Surgical changes and devices: None. Lungs and pleura: No pleural effusions or pneumothorax. Lungs are clear. Elevation of the left hemidiaphragm. Mediastinum: Mediastinal contours appear normal. Heart size is normal. Bones and chest wall: No suspicious bony lesions. Overlying soft tissues appear unremarkable. IMPRESSION: 1. Elevation of the left hemidiaphragm. 2. No acute abnormality. Reviewed by: Delvis Duval on 11/03/2021 5:54 PM PDT Approved by: Delvis Duval on 11/03/2021 5:54 PM PDT Station ID: [id number]
[2021-11-03 18:09] LABS: ALBUMIN 4.6 g/dL (3.2-5.5); ALBUMIN/GLOBULIN RATIO 1.5 (1.0-2.2); BILIRUBIN,TOTAL 0.9 mg/dL (0.2-1.0); CREATININE 0.5 mg/dL (0.4-1.0); POTASSIUM 3.7 mmol/L (3.5-5.0); TOTAL PROTEIN 7.6 g/dL (6.7-8.2)
[2021-11-03] MEDS ORDERED: FAMOTIDINE 20 MG TABLET PO STA (18:23)
[2021-11-03 18:43] VITALS: BP 136/88
== END 2021-11-03 18:53 | disposition home or self-care (01) ==
LOC: ED 16:51
DX: R07.9 Chest pain, unspecified (principal); I49.1 Atrial premature depolarization
CPT/HCPCS: 36415; 71045; 80053; 83690; 84484; 85025; 93005; 99283; 99284; A9270

== ENCOUNTER 2022-08-18 13:23 | Outpatient (CLI) | payer MEDICARE, OTHER ==
[2022-08-18 17:54] LABS: BASOPHILS % (AUTO) 0.8 %; EOSINOPHILS # (AUTO) 0.1 10^3/uL (0.0-0.7); EOSINOPHILS % (AUTO) 1.6 %; LYMPHOCYTES # (AUTO) 1.1 10^3/uL (1.5-3.5); LYMPHOCYTES % (AUTO) 22.7 %; MEAN CORPUSCULAR HEMOGLOBIN 29.9 pg (27.0-31.0); MEAN CORPUSCULAR HGB CONC 32.4 g/dL (32.0-36.0); MEAN PLATELET VOLUME 9.4 fL (7.9-10.8); MONOCYTES # (AUTO) 0.6 10^3/uL (0.0-1.0); MONOCYTES % (AUTO) 11.2 %; NEUTROPHILS # (AUTO) 3.2 10^3/uL (1.5-6.6); NEUTROPHILS % (AUTO) 63.5 %; PLT - PLATELET COUNT 246 10^3/uL (130-450); RED BLOOD COUNT 4.02 10^6/uL (4.20-5.40); RED CELL DISTRIBUTION WIDTH 13.4 % (12.0-15.0)
[2022-08-18 18:36] LABS: ALBUMIN 4.3 g/dL (3.2-5.5); ALBUMIN/GLOBULIN RATIO 1.4 (1.0-2.2); ALKALINE PHOSPHATASE 54 IU/L (42-121); ALT ALANINE AMINOTRANSFERASE 18 IU/L (10-60); AST ASPARTATE AMINOTRANSFERASE 25 IU/L (10-42); BILIRUBIN,TOTAL 0.8 mg/dL (0.2-1.0); BUN - BLOOD UREA NITROGEN 11 mg/dL (6-20); CALCIUM 9.4 mg/dL (8.5-10.3); CARBON DIOXIDE - CO2 27 mmol/L (21-32); CHLORIDE 101 mmol/L (101-111); CHOL/HDL RATIO 2.7 (<4.4); CHOLESTEROL 271 mg/dL; CREATININE 0.6 mg/dL (0.4-1.0); GFR - MDRD 99 (>89); GLUCOSE 114 mg/dL (70-100); HDL CHOLESTEROL 99 mg/dL; LDL CHOLESTEROL,CALCULATED 151 mg/dL; LDL/HDL RATIO 1.5 (<4.4); POTASSIUM 4.4 mmol/L (3.5-5.0); SODIUM 134 mmol/L (135-145); TOTAL PROTEIN 7.3 g/dL (6.7-8.2); TRIGLYCERIDES 107 mg/dL; VLDL CHOLESTEROL 21 mg/dL
[2022-08-18 18:39] LABS: THYROID STIMULATING HORMONE 4.61 uIU/mL (0.34-5.60)
[2022-08-18 21:26] LABS: ESTIMATED AVERAGE GLUCOSE 120 mg/dL (70-100); HEMOGLOBIN A1c% 5.8 % (4.27-6.07)
[2022-08-22 10:10] LABS: HCV RNA QUANTITATION HCV Not Detected IU/mL (.)
== END 2022-08-18 13:24 | disposition home or self-care (01) ==
LOC: LAB.N 13:23
PROVIDERS: ATTEND Family Medicine
DX: G25.81 Restless legs syndrome (principal); M19.90 Unspecified osteoarthritis, unspecified site; R73.03 Prediabetes; B19.20 Unspecified viral hepatitis C without hepatic coma
CPT/HCPCS: 36415; 80053; 80061; 83036; 83721; 84443; 85025; 86803; 87522

== ENCOUNTER 2022-08-30 15:15 | Outpatient (CLI) | payer MEDICARE, OTHER ==
--- NOTE | 2022-08-30 16:09 | DEXA Report ---
PROCEDURE: Dexa Spine and/or Hip INDICATIONS: POST MENOPAUSAL TECHNIQUE: Dual energy x-ray absorptiometry (DXA) was performed on a [employer] System. Regions measur ed are the AP Spine, femoral neck, and if needed forearm. COMPARISON: None FINDINGS: Lumbar Spine: Bone Mineral Density 0.773 g/cm/cm,T score -3.4. Left Femoral Neck: Bone Mineral Density 0.689 g/cm/cm, T score -2.5. Left Hip: Bone Mineral Density 0.727 g/cm/cm,T score -2.2. Impression: 1. Osteoporosis of the lumbar spine and left femur. Patients with diagnosis of osteoporosis or osteopenia should have regular bone mineral density assess ment. For those eligible for Medicare, routine testing is allowed once every 2 years. Testing frequ ency can be increased for patients who have rapidly progressing disease or for those who are receivin g medical therapy to restore bone mass. Reviewed by: Yodit Parks MD on 08/30/2022 4:07 PM PDT Approved by: Yodit Parks MD on 08/30/2022 4:07 PM PDT Station ID: [id number]
== END 2022-08-30 15:16 | disposition home or self-care (01) ==
LOC: DI 15:15
PROVIDERS: ATTEND Family Medicine
DX: Z78.0 Asymptomatic menopausal state (principal); M81.0 Age-related osteoporosis without current pathological fracture

== ENCOUNTER 2023-09-28 13:40 | Outpatient (CLI) | payer MEDICARE ==
[2023-09-28 18:12] LABS: ALBUMIN 4.7 g/dL (3.2-5.5); ALBUMIN/GLOBULIN RATIO 1.8 (1.0-2.2); ALKALINE PHOSPHATASE 50 IU/L (42-121); ALT ALANINE AMINOTRANSFERASE 16 IU/L (10-60); AST ASPARTATE AMINOTRANSFERASE 22 IU/L (10-42); BILIRUBIN,TOTAL 0.5 mg/dL (0.2-1.0); BUN - BLOOD UREA NITROGEN 13 mg/dL (6-20); CALCIUM 10.3 mg/dL (8.5-10.3); CARBON DIOXIDE - CO2 29 mmol/L (21-32); CHLORIDE 100 mmol/L (101-111); CHOL/HDL RATIO 3.2 (<4.4); CHOLESTEROL 276 mg/dL; CREATININE 0.7 mg/dL (0.6-1.3); GFR - MDRD 82 (>89); GLUCOSE 111 mg/dL (74-104); HDL CHOLESTEROL 87 mg/dL; LDL CHOLESTEROL,CALCULATED 167 mg/dL; LDL/HDL RATIO 1.9 (<4.4); POTASSIUM 4.4 mmol/L (3.5-4.5); SODIUM 135 mmol/L (135-145); TOTAL PROTEIN 7.3 g/dL (6.4-8.9); TRIGLYCERIDES 110 mg/dL (48-352); VLDL CHOLESTEROL 22 mg/dL
[2023-09-28 18:19] LABS: BASOPHILS % (AUTO) 0.9 %; EOSINOPHILS # (AUTO) 0.1 10^3/uL (0.0-0.7); HCT - HEMATOCRIT 38.9 % (37.0-47.0); HGB - HEMOGLOBIN 12.4 g/dL (12.0-16.0); LYMPHOCYTES # (AUTO) 1.2 10^3/uL (1.5-3.5); LYMPHOCYTES % (AUTO) 28.3 %; MEAN CORPUSCULAR HGB CONC 31.9 g/dL (32.0-36.0); MEAN CORPUSCULAR VOLUME 94.2 fL (81.0-99.0); MEAN PLATELET VOLUME 9.8 fL (7.9-10.8); MONOCYTES # (AUTO) 0.5 10^3/uL (0.0-1.0); MONOCYTES % (AUTO) 10.4 %; NEUTROPHILS # (AUTO) 2.5 10^3/uL (1.5-6.6); NEUTROPHILS % (AUTO) 57.4 %; PLT - PLATELET COUNT 255 10^3/uL (130-450); RED BLOOD COUNT 4.13 10^6/uL (4.20-5.40); RED CELL DISTRIBUTION WIDTH 13.1 % (12.0-15.0); WHITE BLOOD COUNT 4.3 x10^3/uL (4.8-10.8)
[2023-09-28 18:24] LABS: THYROID STIMULATING HORMONE 4.98 uIU/mL (0.34-5.60)
[2023-09-28 21:25] LABS: ESTIMATED AVERAGE GLUCOSE 111 mg/dL (70-100); HEMOGLOBIN A1c% 5.5 % (4.27-6.07)
== END 2023-09-28 13:41 | disposition home or self-care (01) ==
LOC: LAB.N 13:40
PROVIDERS: ATTEND Family Medicine
DX: K57.30 Diverticulosis of large intestine without perforation or abscess without bleeding (principal); Z78.0 Asymptomatic menopausal state; G25.81 Restless legs syndrome; F33.1 Major depressive disorder, recurrent, moderate; R73.03 Prediabetes; D64.9 Anemia, unspecified; F41.9 Anxiety disorder, unspecified; F51.04 Psychophysiologic insomnia
CPT/HCPCS: 36415; 80053; 80061; 83036; 83721; 84443; 85025